=== PATIENT | male | born 1995 | race Caucasian/White ===

== ENCOUNTER 2017-12-16 10:24 | Emergency (ER) | payer SELFPAY ==
[~2017-12-16] VITALS: Ht 180.3 cm; Wt 64.1 kg
[2017-12-16 10:36] VITALS: Ht 180.3 cm; Wt 64.1 kg
[2017-12-16 11:08] VITALS: BP 136/78
== END 2017-12-17 11:08 | disposition home or self-care (01) ==
LOC: D.ER 10:24
DX: R11.10 Vomiting, unspecified (principal); F17.200 Nicotine dependence, unspecified, uncomplicated

== ENCOUNTER 2018-01-09 16:02 | Emergency (ER) | payer SELFPAY ==
[~2018-01-09] VITALS: Ht 180.3 cm; Wt 62.7 kg
[2018-01-09 16:26] VITALS: Ht 180.3 cm; Wt 62.7 kg
[2018-01-09 19:12] VITALS: BP 123/79
== END 2018-01-09 19:12 | disposition home or self-care (01) ==
LOC: D.ER 16:02
DX: S63.601A Unspecified sprain of right thumb, initial encounter (principal); X58.XXXA Exposure to other specified factors, initial encounter; Y93.89 Activity, other specified; Y92.019 Unspecified place in single-family (private) house as the place of occurrence of the external cause